=== PATIENT | female | born 1990 | race African-American/Black ===

== ENCOUNTER → 2017-01-03 | Outpatient (CLI) | payer MEDICARE, BC | END | disposition home or self-care (01) | LOC: PCVCCLINIC 11:00 | PROVIDERS: ATTEND Internal Medicine | DX: I44.0 Atrioventricular block, first degree (principal); I10 Essential (primary) hypertension; E78.5 Hyperlipidemia, unspecified; T82.03XD Leakage of heart valve prosthesis, subsequent encounter; I71.4 Abdominal aortic aneurysm, without rupture; Z79.82 Long term (current) use of aspirin; Z79.01 Long term (current) use of anticoagulants; Z79.899 Other long term (current) drug therapy; Z86.73 Personal history of transient ischemic attack (TIA), and cerebral infarction without residual deficits; Z87.891 Personal history of nicotine dependence | CPT/HCPCS: 80061; 93005; G0463 ==

== ENCOUNTER → 2017-01-06 | Outpatient (CLI) | payer MEDICARE, BC ==
--- NOTE | 2017-01-07 11:13 | PCVCIMAG ---
APPROVED REPORT Study performed: 01/06/2017 16:12:56 EXAM: Comprehensive 2D, Doppler, and color-flow Echocardiogram Patient Location: Echo lab Status: routine Other Information Study Quality: Good Indications Aortic Valve Disease Cardiomyopathy 2D Dimensions LVEF(%): 59.42 (>50%) IVSd: 16.32 (7-11mm)LVOT Diam: 23.59 (18-24mm) LVDd: 42.49 mm PWd: 12.10 (7-11mm) LVDs: 29.20 (25-40mm) Left Atrium: 40.93 (27-40mm) LV Single Plane 4CH: 59.22 % LV Single Plane 2CH: 54.86 %Figueroa's LVEF: 57.04 % Biplane EF: 57.0 % Volumes Left Atrial Volume (Systole) Single Plane 4CH: 100.41 mLSingle Plane 2CH: 69.61 mL LA ESV Index: 44.00 mL/m2 Aortic Valve AoV Peak Manuelito.: 2.53 m/s AO Peak Gr.: 24.47 mmHgLVOT Max P.22 mmHg AO Mean Gr.: 19.66 mmHgLVOT Mean P.34 mmHg AO V2 Mean: 2.19 m/sLVOT Max V: 0.86 m/s AO V2 VTI: 56.02 cmLVOT Mean V: 0.75 m/s GILLINA (VTI): 1.58 [id number] V1 VTI: 20.31 cm GILLIAN Vmax: 1.49 cm2 AI Vmax: 4.33 m/sSV (LVOT): 88.68 mL AI Yoakum: 4.80 m/s2 AI PHT: 267.67 ms Mitral Valve MV Peak Gr.: 2.75 mmHg MV Mean Gr.: 1.43 mmHgE/A Ratio: 1.1 MV Decel. Time: 146.24 ms MV E Max Manuelito.: 0.72 m/s MV A Manuelito.: 0.65 m/s MV Max Manuelito.: 0.83 m/s MV Mean Manuelito.: 0.58 m/s MV VTI: 189.87 mm MVA VTI: 467.07 mm2 MV PHT: 35.95 ms MVA (PHT): 6.12 cm2 IVRT: 89.97 ms TDI E/Lateral E': 6.55E/Medial E': 24.00 Medial E' Manuelito.: 0.03 m/s Lateral E' Manuelito.: 0.11 m/s Pulmonary Valve PV Peak Manuelito.: 0.75 m/sPV Peak Gr.: 2.24 mmHg Pulmonary Vein P Vein S: 0.41 m/sP Vein A: 0.50 m/s P Vein D: 0.50 m/sP Vein A Dur.: 131.5 msec P Vein S/D Ratio: 0.82 Tricuspid Valve TR Peak Manuelito.: 2.84 m/s TR Peak Gr.: 32.37 mmHg TV Vmax: 0.86 m/sPA Pressure: 39.00 mmHg Left Ventricle The left ventricle is normal size. There is normal LV segmental wall motion. Left ventricular hypertrophy with asymetric septal hypertrophy Left ventricular systolic function is normal. The left ventricular ejection fraction is within the normal range. LVEF is 55-60%. The left ventricular diastolic function is normal. Right Ventricle The right ventricle is normal size. The right ventricular systolic function is normal. Atria Left atrium is moderately dilated. Right atrium is severely dilated. Aortic Valve Prosthetic valve is seen in the aortic position. Moderate to severe aortic regurgitation Mildly increased flow velocity is seen- may be normal for this valve. Mitral Valve The mitral valve is normal in structure. There is no mitral valve regurgitation noted. No evidence of mitral valve stenosis. Tricuspid Valve The tricuspid valve is normal in structure. Severe tricuspid regurgitation with a PA pressure of39-43. Pulmonic Valve The pulmonary valve is normal in structure. There is no pulmonic valvular regurgitation. Great Vessels The aortic root is normal in size. The ascending aorta is normal in size. Flow reversal is seen with doppler in the dsc aorta consistent with modertae-severe aortic insuffeciency. IVC is normal in size and collapses with >50% inspiration Pericardium There is no pericardial effusion. <Conclusion> The left ventricle is normal size. LVEF is 55-60%. Left atrium is moderately dilated. Right atrium is severely dilated. Prosthetic valve is seen in the aortic position. Moderate to severe aortic regurgitation Mildly increased flow velocity is seen- may be normal for this valve. The mitral valve is normal in structure. There is no mitral valve regurgitation noted. The tricuspid valve is normal in structure. Severe tricuspid regurgitation with a PA pressure of39-43. The pulmonary valve is normal in structure. The aortic root is normal in size. The ascending aorta is normal in size. Flow reversal is seen with doppler in the dsc aorta consistent with modertae-severe aortic insuffeciency.
== END | disposition home or self-care (01) ==
LOC: PCVCIMAG 16:02
PROVIDERS: ATTEND Internal Medicine
DX: I08.2 Rheumatic disorders of both aortic and tricuspid valves (principal); I10 Essential (primary) hypertension; I42.9 Cardiomyopathy, unspecified; E78.5 Hyperlipidemia, unspecified
CPT/HCPCS: 93306

== ENCOUNTER → 2017-11-07 | Outpatient (CLI) | payer MEDICARE, BC | END | disposition home or self-care (01) | LOC: PCVCCLINIC 13:11 | DX: E78.5 Hyperlipidemia, unspecified (principal); D64.9 Anemia, unspecified; R06.09 Other forms of dyspnea; M32.8 Other forms of systemic lupus erythematosus; T82.03XD Leakage of heart valve prosthesis, subsequent encounter; Z87.898 Personal history of other specified conditions; Z79.82 Long term (current) use of aspirin; Z79.899 Other long term (current) drug therapy; Z87.891 Personal history of nicotine dependence | CPT/HCPCS: 80061; G0463 ==

== ENCOUNTER → 2017-12-20 | Outpatient (CLI) | payer MEDICARE, BC | END | disposition home or self-care (01) | LOC: PCVCIMAG 14:17 | DX: I08.3 Combined rheumatic disorders of mitral, aortic and tricuspid valves (principal); R07.89 Other chest pain; Z95.2 Presence of prosthetic heart valve | CPT/HCPCS: 93306 ==